=== PATIENT | male | born 1955 | race Caucasian/White ===

== ENCOUNTER 2024-02-22 05:52 | Outpatient (CLI) | payer MEDICARE, SELFPAY ==
[2024-02-22 08:37] LABS: Abs Immature Grans 0.02 10^3/uL (0.0-0.06); Absolute Basophil Count 0.04 10^3/uL (0.0-0.2); Absolute Eosinophil Count 0.43 10^3/uL (0.0-0.7); Absolute Lymphocyte Count 1.39 10^3/uL (1.2-3.4); Absolute Monocyte Count 0.62 10^3/uL (0.1-0.8); Absolute Neutrophil Count 3.54 10^3/uL (1.2-6.7); Basophils % 0.7; Eosinophils % 7.1; HCT 42.9 % (40.0-50.0); HGB 14.1 g/dL (13.5-17.5); Immature Grans % 0.3; MCH 31.7 pg (27.0-33.0); MCHC 32.9 % (32.0-36.0); MCV 96 fL (80-95); MPV 9.7 fL (8.0-11.0); Monocytes % 10.3; Neutrophils % 58.6; Platelet Count 259 10^3/uL (130-400); RBC 4.45 10^6/uL (4.36-5.78); RDW 13.6 % (11.8-14.1); RDW-SD 48.8 fL; WBC 6.04 10^3/uL (4.4-10.8)
[2024-02-22 09:02] LABS: ALT 27 U/L (16-63); AST 32 U/L (15-37); Albumin 3.1 g/dL (3.4-5.0); Alkaline Phosphatase 93 U/L (46-116); BUN 20 mg/dL (7-18); Bilirubin, Total 0.4 mg/dL (0.2-1.0); CREATININE 1.2 mg/dL (0.70-1.30); Calcium 9.1 mg/dL (8.5-10.1); Chloride 105 mmol/L (98-107); Estimated GFR 65.06 (mL/min/1.73m2); FREE T4 1.03 ng/dL (0.76-1.46); Glucose 78 mg/dL (74-106); Potassium 4.4 mmol/L (3.5-5.1); Sodium 144 mmol/L (136-145); TSH 1.19 uIU/Ml (0.36-3.74); Total Protein 7.9 g/dL (6.4-8.2)
== END 2024-02-22 05:53 | disposition home or self-care (01) ==
LOC: LBO 05:52
PROVIDERS: Visit Provider Nurse Practitioner
DX: Z79.899 Other long term (current) drug therapy (principal)
CPT/HCPCS: 36415; 80053; 84439; 84443; 85025

== ENCOUNTER 2024-04-05 01:07 | Outpatient (RCR) | payer MEDICARE, SELFPAY ==
[2024-03-14] MEDS: Normal Saline Flush 10 ML SYR IVP (08:48)
[2024-03-14 09:22] LABS: Abs Immature Grans 0.04 10^3/uL (0.0-0.06); Absolute Basophil Count 0.06 10^3/uL (0.0-0.2); Absolute Eosinophil Count 0.04 10^3/uL (0.0-0.7); Absolute Lymphocyte Count 1.37 10^3/uL (1.2-3.4); Absolute Monocyte Count 0.82 10^3/uL (0.1-0.8); Absolute Neutrophil Count 5.13 10^3/uL (1.2-6.7); Basophils % 0.8 %; Eosinophils % 0.5 %; HCT 39.1 % (40.0-50.0); HGB 13.4 g/dL (13.5-17.5); Immature Grans % 0.5 %; Lymphocytes % 18.4 %; MCH 32.1 pg (27.0-33.0); MCHC 34.3 % (32.0-36.0); MCV 94 fL (80-95); MPV 9.7 fL (8.0-11.0); Neutrophils % 68.8 %; Platelet Count 232 10^3/uL (130-400); RBC 4.17 10^6/uL (4.36-5.78); RDW 13.7 % (11.8-14.1); RDW-SD 46.6 fL; WBC 7.46 10^3/uL (4.4-10.8)
[2024-03-14 09:50] LABS: ALT 24 U/L (16-63); AST 19 U/L (15-37); Albumin 2.9 g/dL (3.4-5.0); Alkaline Phosphatase 88 U/L (46-116); Anion Gap 8.2 mmol/L (3-11); BUN 23 mg/dL (7-18); Bilirubin, Total 0.4 mg/dL (0.2-1.0); CO2 27.8 mmol/L (21.0-32.0); CREATININE 1.1 mg/dL (0.70-1.30); Calcium 8.6 mg/dL (8.5-10.1); Chloride 106 mmol/L (98-107); Estimated GFR 72.22 (mL/min/1.73m2); FREE T4 0.96 ng/dL (0.76-1.46); Glucose 88 mg/dL (74-106); Potassium 4.3 mmol/L (3.5-5.1); Sodium 142 mmol/L (136-145); TSH 0.99 uIU/Ml (0.36-3.74); Total Protein 7.3 g/dL (6.4-8.2)
[2024-04-05] MEDS: Normal Saline Flush 10 ML SYR IVP (08:40)
[2024-04-05 09:24] LABS: Abs Immature Grans 0.02 10^3/uL (0.0-0.06); Absolute Basophil Count 0.05 10^3/uL (0.0-0.2); Absolute Eosinophil Count 0.03 10^3/uL (0.0-0.7); Absolute Lymphocyte Count 1.23 10^3/uL (1.2-3.4); Absolute Monocyte Count 0.76 10^3/uL (0.1-0.8); Absolute Neutrophil Count 5.06 10^3/uL (1.2-6.7); Basophils % 0.7 %; Eosinophils % 0.4 %; HCT 37.2 % (40.0-50.0); HGB 12.5 g/dL (13.5-17.5); Immature Grans % 0.3 %; Lymphocytes % 17.2 %; MCH 31.6 pg (27.0-33.0); MCHC 33.6 % (32.0-36.0); MCV 94 fL (80-95); MPV 9.8 fL (8.0-11.0); Monocytes % 10.6 %; Neutrophils % 70.8 %; Platelet Count 215 10^3/uL (130-400); RBC 3.95 10^6/uL (4.36-5.78); RDW 14.6 % (11.8-14.1); WBC 7.15 10^3/uL (4.4-10.8)
[2024-04-05 09:52] LABS: ALT 26 U/L (16-63); AST 22 U/L (15-37); Albumin 2.9 g/dL (3.4-5.0); Alkaline Phosphatase 88 U/L (46-116); Anion Gap 5.4 mmol/L (3-11); BUN 16 mg/dL (7-18); Bilirubin, Total 0.4 mg/dL (0.2-1.0); CO2 27.6 mmol/L (21.0-32.0); CREATININE 1.1 mg/dL (0.70-1.30); Calcium 8.4 mg/dL (8.5-10.1); Chloride 104 mmol/L (98-107); Estimated GFR 72.22 (mL/min/1.73m2); FREE T4 0.86 ng/dL (0.76-1.46); Glucose 105 mg/dL (74-106); Potassium 4.6 mmol/L (3.5-5.1); Sodium 137 mmol/L (136-145); TSH 2.34 uIU/Ml (0.36-3.74); Total Protein 7.4 g/dL (6.4-8.2)
== END 2024-04-08 23:59 | disposition home or self-care (01) ==
LOC: INF 01:07
PROVIDERS: Visit Provider Nurse Practitioner
DX: Z79.899 Other long term (current) drug therapy (principal); C76.0 Malignant neoplasm of head, face and neck; Z45.2 Encounter for adjustment and management of vascular access device
CPT/HCPCS: 36591; 80053; 84439; 84443; 85025

== ENCOUNTER 2024-04-25 05:45 | Outpatient (RCR) | payer MEDICARE, SELFPAY ==
[2024-04-25] MEDS: Normal Saline Flush 10 ML SYR IVP (07:50)
[2024-04-25 08:00] LABS: Abs Immature Grans 0.05 10^3/uL (0.0-0.06); Absolute Basophil Count 0.04 10^3/uL (0.0-0.2); Absolute Eosinophil Count 0.01 10^3/uL (0.0-0.7); Absolute Lymphocyte Count 1.23 10^3/uL (1.2-3.4); Absolute Monocyte Count 0.66 10^3/uL (0.1-0.8); Absolute Neutrophil Count 4.65 10^3/uL (1.2-6.7); Basophils % 0.6 %; Eosinophils % 0.2 %; HCT 36.8 % (40.0-50.0); HGB 12.1 g/dL (13.5-17.5); Immature Grans % 0.8 %; Lymphocytes % 18.5 %; MCH 31.8 pg (27.0-33.0); MCHC 32.9 % (32.0-36.0); MCV 97 fL (80-95); MPV 9.5 fL (8.0-11.0); Monocytes % 9.9 %; Platelet Count 203 10^3/uL (130-400); RBC 3.81 10^6/uL (4.36-5.78); RDW 15.4 % (11.8-14.1); RDW-SD 54.1 fL; WBC 6.64 10^3/uL (4.4-10.8)
[2024-04-25 08:25] LABS: ALT 25 U/L (16-63); AST 22 U/L (15-37); Albumin 2.9 g/dL (3.4-5.0); Alkaline Phosphatase 88 U/L (46-116); Anion Gap 6.7 mmol/L (3-11); BUN 20 mg/dL (7-18); Bilirubin, Total 0.3 mg/dL (0.2-1.0); CO2 28.3 mmol/L (21.0-32.0); Calcium 8.8 mg/dL (8.5-10.1); Chloride 106 mmol/L (98-107); Estimated GFR 80.97 (mL/min/1.73m2); FREE T4 1.03 ng/dL (0.76-1.46); Glucose 115 mg/dL (74-106); Potassium 4.6 mmol/L (3.5-5.1); Sodium 141 mmol/L (136-145); TSH 1.48 uIU/Ml (0.36-3.74); Total Protein 7.5 g/dL (6.4-8.2)
== END 2024-05-08 23:59 | disposition home or self-care (01) ==
LOC: INF 05:45
PROVIDERS: Visit Provider Nurse Practitioner
DX: C76.0 Malignant neoplasm of head, face and neck (principal); Z79.899 Other long term (current) drug therapy; Z45.2 Encounter for adjustment and management of vascular access device
CPT/HCPCS: 36591; 80053; 84439; 84443; 85025

== ENCOUNTER 2024-05-16 03:07 | Outpatient (RCR) | payer MEDICARE, SELFPAY ==
[2024-05-16] MEDS: Normal Saline Flush 10 ML SYR IVP (09:00)
[2024-05-16 09:11] LABS: Abs Immature Grans 0.03 10^3/uL (0.0-0.06); Absolute Basophil Count 0.04 10^3/uL (0.0-0.2); Absolute Eosinophil Count 0.02 10^3/uL (0.0-0.7); Absolute Lymphocyte Count 1.09 10^3/uL (1.2-3.4); Absolute Monocyte Count 0.69 10^3/uL (0.1-0.8); Absolute Neutrophil Count 4.35 10^3/uL (1.2-6.7); Basophils % 0.6 %; Eosinophils % 0.3 %; HCT 33.7 % (40.0-50.0); HGB 11.1 g/dL (13.5-17.5); Immature Grans % 0.5 %; Lymphocytes % 17.5 %; MCH 32.3 pg (27.0-33.0); MCHC 32.9 % (32.0-36.0); MCV 98 fL (80-95); MPV 9.7 fL (8.0-11.0); Monocytes % 11.1 %; Platelet Count 188 10^3/uL (130-400); RBC 3.44 10^6/uL (4.36-5.78); RDW 16.3 % (11.8-14.1); RDW-SD 58.5 fL; WBC 6.22 10^3/uL (4.4-10.8)
[2024-05-16 09:39] LABS: ALT 18 U/L (16-63); AST 22 U/L (15-37); Albumin 2.7 g/dL (3.4-5.0); Alkaline Phosphatase 85 U/L (46-116); Anion Gap 5.9 mmol/L (3-11); BUN 17 mg/dL (7-18); Bilirubin, Total 0.27 mg/dL (0.2-1.0); CO2 29.1 mmol/L (21.0-32.0); CREATININE 1.1 mg/dL (0.70-1.30); Calcium 8.4 mg/dL (8.5-10.1); Chloride 105 mmol/L (98-107); Estimated GFR 72.22 (mL/min/1.73m2); Glucose 111 mg/dL (74-106); Potassium 4.2 mmol/L (3.5-5.1); Sodium 140 mmol/L (136-145); TSH 1.39 uIU/Ml (0.36-3.74); Total Protein 7.3 g/dL (6.4-8.2)
== END 2024-06-08 23:59 | disposition home or self-care (01) ==
LOC: INF 03:07
PROVIDERS: Visit Provider Nurse Practitioner
DX: C76.0 Malignant neoplasm of head, face and neck (principal); Z79.899 Other long term (current) drug therapy; Z45.2 Encounter for adjustment and management of vascular access device
CPT/HCPCS: 36591; 80053; 84439; 84443; 85025

== ENCOUNTER 2024-07-04 02:43 | Outpatient (RCR) | payer MEDICARE, SELFPAY ==
[2024-06-21 08:55] LABS: Abs Immature Grans 0.04 10^3/uL (0.0-0.06); Absolute Basophil Count 0.04 10^3/uL (0.0-0.2); Absolute Eosinophil Count 0.08 10^3/uL (0.0-0.7); Absolute Lymphocyte Count 2.02 10^3/uL (1.2-3.4); Absolute Monocyte Count 0.72 10^3/uL (0.1-0.8); Absolute Neutrophil Count 4.01 10^3/uL (1.2-6.7); Basophils % 0.6 %; Eosinophils % 1.2 %; HCT 35.3 % (40.0-50.0); HGB 11.4 g/dL (13.5-17.5); Immature Grans % 0.6 %; Lymphocytes % 29.2 %; MCH 32.6 pg (27.0-33.0); MCHC 32.3 % (32.0-36.0); MCV 101 fL (80-95); MPV 9.7 fL (8.0-11.0); Monocytes % 10.4 %; Platelet Count 289 10^3/uL (130-400); RDW 17.2 % (11.8-14.1); WBC 6.91 10^3/uL (4.4-10.8)
[2024-06-21] MEDS: Normal Saline Flush 10 ML SYR IVP (09:07)
[2024-06-21 09:28] LABS: ALT 25 U/L (16-63); AST 17 U/L (15-37); Albumin 2.8 g/dL (3.4-5.0); Alkaline Phosphatase 77 U/L (46-116); Anion Gap 6.5 mmol/L (3-11); BUN 18 mg/dL (7-18); Bilirubin, Total 0.29 mg/dL (0.2-1.0); CO2 31.5 mmol/L (21.0-32.0); Calcium 9.3 mg/dL (8.5-10.1); Chloride 104 mmol/L (98-107); Estimated GFR 80.97 (mL/min/1.73m2); FREE T4 1.25 ng/dL (0.76-1.46); Glucose 83 mg/dL (74-106); Sodium 142 mmol/L (136-145); TSH 1.36 uIU/Ml (0.36-3.74); Total Protein 7.6 g/dL (6.4-8.2)
[2024-07-04] MEDS: Normal Saline Flush 10 ML SYR IVP (09:11)
[2024-07-04 09:25] LABS: Abs Immature Grans 0.03 10^3/uL (0.0-0.06); Absolute Basophil Count 0.03 10^3/uL (0.0-0.2); Absolute Eosinophil Count 0.25 10^3/uL (0.0-0.7); Absolute Lymphocyte Count 1.79 10^3/uL (1.2-3.4); Absolute Monocyte Count 0.78 10^3/uL (0.1-0.8); Absolute Neutrophil Count 6.41 10^3/uL (1.2-6.7); Basophils % 0.3 %; Eosinophils % 2.7 %; HCT 36.9 % (40.0-50.0); Immature Grans % 0.3 %; Lymphocytes % 19.3 %; MCH 33.4 pg (27.0-33.0); MCHC 32.5 % (32.0-36.0); MCV 103 fL (80-95); MPV 9.5 fL (8.0-11.0); Monocytes % 8.4 %; Platelet Count 184 10^3/uL (130-400); RBC 3.59 10^6/uL (4.36-5.78); RDW 17.8 % (11.8-14.1); RDW-SD 67.9 fL; WBC 9.29 10^3/uL (4.4-10.8)
[2024-07-04 09:53] LABS: ALT 30 U/L (16-63); AST 22 U/L (15-37); Albumin 2.8 g/dL (3.4-5.0); Alkaline Phosphatase 100 U/L (46-116); Anion Gap 5.4 mmol/L (3-11); BUN 17 mg/dL (7-18); Bilirubin, Total 0.41 mg/dL (0.2-1.0); CO2 29.6 mmol/L (21.0-32.0); CREATININE 0.9 mg/dL (0.70-1.30); Calcium 8.9 mg/dL (8.5-10.1); Chloride 104 mmol/L (98-107); Estimated GFR 91.88 (mL/min/1.73m2); FREE T4 1.14 ng/dL (0.76-1.46); Glucose 89 mg/dL (74-106); Magnesium 1.8 mg/dL (1.8-2.4); Sodium 139 mmol/L (136-145); TSH 1.02 uIU/Ml (0.36-3.74); Total Protein 7.2 g/dL (6.4-8.2)
== END 2024-07-09 23:59 | disposition home or self-care (01) ==
LOC: INF 02:43
PROVIDERS: Visit Provider Nurse Practitioner
DX: C76.0 Malignant neoplasm of head, face and neck (principal); Z79.899 Other long term (current) drug therapy
CPT/HCPCS: 36591; 80053; 83735; 84439; 84443; 85025

== ENCOUNTER 2024-08-01 02:42 | Outpatient (RCR) | payer MEDICARE, SELFPAY ==
[2024-07-18] MEDS: Normal Saline Flush 10 ML SYR IVP (08:36)
[2024-07-18 08:56] LABS: Abs Immature Grans 0.03 10^3/uL (0.0-0.06); Absolute Basophil Count 0.03 10^3/uL (0.0-0.2); Absolute Eosinophil Count 0.15 10^3/uL (0.0-0.7); Absolute Monocyte Count 0.66 10^3/uL (0.1-0.8); Absolute Neutrophil Count 4.62 10^3/uL (1.2-6.7); Basophils % 0.4 %; Eosinophils % 2.1 %; HGB 12.5 g/dL (13.5-17.5); Immature Grans % 0.4 %; Lymphocytes % 22.6 %; MCH 33.9 pg (27.0-33.0); MCHC 32.9 % (32.0-36.0); MCV 103 fL (80-95); MPV 9.5 fL (8.0-11.0); Monocytes % 9.3 %; Neutrophils % 65.2 %; Platelet Count 247 10^3/uL (130-400); RBC 3.69 10^6/uL (4.36-5.78); RDW-SD 64.8 fL; WBC 7.09 10^3/uL (4.4-10.8)
[2024-07-18 09:20] LABS: ALT 29 U/L (16-63); AST 23 U/L (15-37); Albumin 2.9 g/dL (3.4-5.0); Alkaline Phosphatase 95 U/L (46-116); Anion Gap 4.5 mmol/L (3-11); BUN 22 mg/dL (7-18); CO2 30.5 mmol/L (21.0-32.0); Calcium 9.2 mg/dL (8.5-10.1); Chloride 104 mmol/L (98-107); Creatine Kinase 109 U/L (39-308); Estimated GFR 80.97 (mL/min/1.73m2); Glucose 83 mg/dL (74-106); Potassium 4.3 mmol/L (3.5-5.1); Sodium 139 mmol/L (136-145); Total Protein 7.4 g/dL (6.4-8.2)
[2024-07-20 10:31] LABS: Aldolase 4.8 U/L (<7.7)
[2024-08-01 08:46] LABS: Abs Immature Grans 0.03 10^3/uL (0.0-0.06); Absolute Basophil Count 0.02 10^3/uL (0.0-0.2); Absolute Eosinophil Count 0.02 10^3/uL (0.0-0.7); Absolute Lymphocyte Count 1.13 10^3/uL (1.2-3.4); Absolute Monocyte Count 0.42 10^3/uL (0.1-0.8); Absolute Neutrophil Count 5.56 10^3/uL (1.2-6.7); Basophils % 0.3 %; Eosinophils % 0.3 %; HGB 12.8 g/dL (13.5-17.5); Immature Grans % 0.4 %; Lymphocytes % 15.7 %; MCH 33.6 pg (27.0-33.0); MCHC 32.8 % (32.0-36.0); MCV 102 fL (80-95); MPV 9.3 fL (8.0-11.0); Monocytes % 5.8 %; Neutrophils % 77.5 %; Platelet Count 252 10^3/uL (130-400); RBC 3.81 10^6/uL (4.36-5.78); RDW 15.5 % (11.8-14.1); RDW-SD 58.1 fL; WBC 7.18 10^3/uL (4.4-10.8)
[2024-08-01 09:11] LABS: ALT 27 U/L (16-63); AST 23 U/L (15-37); Albumin 2.7 g/dL (3.4-5.0); Alkaline Phosphatase 87 U/L (46-116); Anion Gap 5.8 mmol/L (3-11); BUN 20 mg/dL (7-18); Bilirubin, Total 0.42 mg/dL (0.2-1.0); CO2 30.2 mmol/L (21.0-32.0); Calcium 9.2 mg/dL (8.5-10.1); Chloride 104 mmol/L (98-107); Estimated GFR 80.97 (mL/min/1.73m2); FREE T4 0.95 ng/dL (0.76-1.46); Glucose 105 mg/dL (74-106); Magnesium 1.8 mg/dL (1.8-2.4); Potassium 4.4 mmol/L (3.5-5.1); Sodium 140 mmol/L (136-145); TSH 0.76 uIU/Ml (0.36-3.74); Total Protein 7.8 g/dL (6.4-8.2)
[2024-08-01] MEDS: Normal Saline Flush 10 ML SYR IVP (10:20)
== END 2024-08-08 23:59 | disposition home or self-care (01) ==
LOC: INF 02:42
PROVIDERS: Visit Provider Nurse Practitioner
DX: C76.0 Malignant neoplasm of head, face and neck (principal); Z79.899 Other long term (current) drug therapy
CPT/HCPCS: 36591; 80053; 82550; 82085; 83735; 84439; 84443; 85025

== ENCOUNTER 2024-08-29 02:01 | Outpatient (RCR) | payer MEDICARE, SELFPAY ==
[2024-08-15] MEDS: Normal Saline Flush 10 ML SYR IVP (10:09)
[2024-08-15 10:41] LABS: Abs Immature Grans 0.03 10^3/uL (0.0-0.06); Absolute Basophil Count 0.03 10^3/uL (0.0-0.2); Absolute Eosinophil Count 0.06 10^3/uL (0.0-0.7); Absolute Lymphocyte Count 1.48 10^3/uL (1.2-3.4); Absolute Monocyte Count 0.83 10^3/uL (0.1-0.8); Absolute Neutrophil Count 6.85 10^3/uL (1.2-6.7); Basophils % 0.3 %; Eosinophils % 0.6 %; HCT 37.6 % (40.0-50.0); HGB 12.6 g/dL (13.5-17.5); Immature Grans % 0.3 %; Lymphocytes % 15.9 %; MCH 33.3 pg (27.0-33.0); MCHC 33.5 % (32.0-36.0); MCV 100 fL (80-95); MPV 9.5 fL (8.0-11.0); Monocytes % 8.9 %; Platelet Count 264 10^3/uL (130-400); RBC 3.78 10^6/uL (4.36-5.78); RDW 14.6 % (11.8-14.1); RDW-SD 53.9 fL; WBC 9.28 10^3/uL (4.4-10.8)
[2024-08-15 11:12] LABS: ALT 28 U/L (16-63); AST 23 U/L (15-37); Albumin 2.6 g/dL (3.4-5.0); Alkaline Phosphatase 111 U/L (46-116); Anion Gap 6.9 mmol/L (3-11); BUN 25 mg/dL (7-18); Bilirubin, Total 0.28 mg/dL (0.2-1.0); CO2 28.1 mmol/L (21.0-32.0); Calcium 8.9 mg/dL (8.5-10.1); Chloride 105 mmol/L (98-107); Estimated GFR 80.47 (mL/min/1.73m2); FREE T4 1.03 ng/dL (0.76-1.46); Glucose 119 mg/dL (74-106); Potassium 4.4 mmol/L (3.5-5.1); Sodium 140 mmol/L (136-145); TSH 0.63 uIU/Ml (0.36-3.74); Total Protein 7.5 g/dL (6.4-8.2)
[2024-08-15 12:36] LABS: Magnesium 1.8 mg/dL (1.8-2.4)
[2024-08-29] MEDS: Normal Saline Flush 10 ML SYR IVP (10:25)
[2024-08-29 10:31] LABS: Abs Immature Grans 0.04 10^3/uL (0.0-0.06); Absolute Basophil Count 0.04 10^3/uL (0.0-0.2); Absolute Lymphocyte Count 1.58 10^3/uL (1.2-3.4); Absolute Monocyte Count 0.86 10^3/uL (0.1-0.8); Absolute Neutrophil Count 7.42 10^3/uL (1.2-6.7); Basophils % 0.4 %; HCT 37.5 % (40.0-50.0); HGB 12.5 g/dL (13.5-17.5); Immature Grans % 0.4 %; Lymphocytes % 15.7 %; MCH 33.3 pg (27.0-33.0); MCHC 33.3 % (32.0-36.0); MCV 100 fL (80-95); MPV 9.5 fL (8.0-11.0); Monocytes % 8.6 %; Neutrophils % 73.9 %; Platelet Count 233 10^3/uL (130-400); RBC 3.75 10^6/uL (4.36-5.78); RDW 14.5 % (11.8-14.1); RDW-SD 53.3 fL; WBC 10.04 10^3/uL (4.4-10.8)
[2024-08-29 10:55] LABS: ALT 36 U/L (16-63); AST 28 U/L (15-37); Albumin 2.6 g/dL (3.4-5.0); Alkaline Phosphatase 103 U/L (46-116); Anion Gap 3.2 mmol/L (3-11); BUN 21 mg/dL (7-18); CO2 31.8 mmol/L (21.0-32.0); CREATININE 1.1 mg/dL (0.70-1.30); Calcium 8.8 mg/dL (8.5-10.1); Chloride 106 mmol/L (98-107); Estimated GFR 71.77 (mL/min/1.73m2); FREE T4 0.99 ng/dL (0.76-1.46); Glucose 115 mg/dL (74-106); Magnesium 1.8 mg/dL (1.8-2.4); Potassium 4.3 mmol/L (3.5-5.1); Sodium 141 mmol/L (136-145); TSH 0.63 uIU/mL (0.36-3.74); Total Protein 7.3 g/dL (6.4-8.2)
== END 2024-09-08 23:59 | disposition home or self-care (01) ==
LOC: INF 02:01
PROVIDERS: Visit Provider Nurse Practitioner
DX: C76.0 Malignant neoplasm of head, face and neck (principal); Z79.899 Other long term (current) drug therapy; Z45.2 Encounter for adjustment and management of vascular access device
CPT/HCPCS: 36591; 80053; 83735; 84439; 84443; 85025

== ENCOUNTER 2024-09-26 01:46 | Outpatient (RCR) | payer MEDICARE, SELFPAY ==
[2024-09-12] MEDS: Normal Saline Flush 10 ML SYR IVP (08:41)
[2024-09-12 09:12] LABS: Abs Immature Grans 0.02 10^3/uL (0.0-0.06); Absolute Basophil Count 0.06 10^3/uL (0.0-0.2); Absolute Eosinophil Count 0.15 10^3/uL (0.0-0.7); Absolute Lymphocyte Count 1.54 10^3/uL (1.2-3.4); Absolute Monocyte Count 0.76 10^3/uL (0.1-0.8); Basophils % 0.9 %; Eosinophils % 2.2 %; HCT 40.6 % (40.0-50.0); HGB 13.4 g/dL (13.5-17.5); Immature Grans % 0.3 %; Lymphocytes % 22.9 %; MCH 32.9 pg (27.0-33.0); MCV 100 fL (80-95); MPV 9.4 fL (8.0-11.0); Monocytes % 11.3 %; Neutrophils % 62.4 %; Platelet Count 229 10^3/uL (130-400); RBC 4.07 10^6/uL (4.36-5.78); RDW 14.6 % (11.8-14.1); WBC 6.73 10^3/uL (4.4-10.8)
[2024-09-12 09:49] LABS: ALT 41 U/L (16-63); AST 30 U/L (15-37); Albumin 2.8 g/dL (3.4-5.0); Alkaline Phosphatase 92 U/L (46-116); BUN 19 mg/dL (7-18); Bilirubin, Total 0.41 mg/dL (0.2-1.0); CREATININE 1.1 mg/dL (0.70-1.30); Calcium 9.1 mg/dL (8.5-10.1); Chloride 106 mmol/L (98-107); Estimated GFR 71.77 (mL/min/1.73m2); Glucose 93 mg/dL (74-106); Magnesium 1.9 mg/dL (1.8-2.4); Potassium 4.4 mmol/L (3.5-5.1); Sodium 144 mmol/L (136-145); TSH 1.12 uIU/mL (0.36-3.74); Total Protein 7.5 g/dL (6.4-8.2)
[2024-09-12 10:05] LABS: FREE T4 0.93 ng/dL (0.76-1.46)
[2024-09-26 10:16] LABS: Abs Immature Grans 0.01 10^3/uL (0.0-0.06); Absolute Basophil Count 0.03 10^3/uL (0.0-0.2); Absolute Lymphocyte Count 1.44 10^3/uL (1.2-3.4); Absolute Monocyte Count 0.63 10^3/uL (0.1-0.8); Absolute Neutrophil Count 4.53 10^3/uL (1.2-6.7); Basophils % 0.4 %; Eosinophils % 1.5 %; HCT 40.2 % (40.0-50.0); HGB 13.4 g/dL (13.5-17.5); Immature Grans % 0.1 %; Lymphocytes % 21.4 %; MCH 32.7 pg (27.0-33.0); MCHC 33.3 % (32.0-36.0); MCV 98 fL (80-95); MPV 9.7 fL (8.0-11.0); Monocytes % 9.3 %; Neutrophils % 67.3 %; Platelet Count 238 10^3/uL (130-400); RDW 14.5 % (11.8-14.1); RDW-SD 51.9 fL; WBC 6.74 10^3/uL (4.4-10.8)
[2024-09-26] MEDS: Normal Saline Flush 10 ML SYR IVP (10:17)
[2024-09-26 10:47] LABS: ALT 40 U/L (16-63); AST 32 U/L (15-37); Albumin 3.1 g/dL (3.4-5.0); Alkaline Phosphatase 106 U/L (46-116); Anion Gap 6.4 mmol/L (3-11); BUN 21 mg/dL (7-18); Bilirubin, Total 0.39 mg/dL (0.2-1.0); CO2 29.6 mmol/L (21.0-32.0); CREATININE 1.1 mg/dL (0.70-1.30); Calcium 9.1 mg/dL (8.5-10.1); Chloride 106 mmol/L (98-107); Estimated GFR 71.77 (mL/min/1.73m2); Glucose 97 mg/dL (74-106); Magnesium 1.7 mg/dL (1.8-2.4); Potassium 4.3 mmol/L (3.5-5.1); Sodium 142 mmol/L (136-145); TSH 0.84 uIU/mL (0.36-3.74); Total Protein 7.6 g/dL (6.4-8.2)
== END 2024-10-08 23:59 | disposition home or self-care (01) ==
LOC: INF 01:46
PROVIDERS: Visit Provider Nurse Practitioner
DX: C76.0 Malignant neoplasm of head, face and neck (principal); Z79.899 Other long term (current) drug therapy; Z45.2 Encounter for adjustment and management of vascular access device
CPT/HCPCS: 36591; 80053; 83735; 84439; 84443; 85025

== ENCOUNTER 2024-10-10 03:18 | Outpatient (RCR) | payer MEDICARE, SELFPAY ==
[2024-10-10] MEDS: Normal Saline Flush 10 ML SYR IVP (09:11)
[2024-10-10 09:25] LABS: Abs Immature Grans 0.03 10^3/uL (0.0-0.06); Absolute Basophil Count 0.02 10^3/uL (0.0-0.2); Absolute Eosinophil Count 0.05 10^3/uL (0.0-0.7); Absolute Lymphocyte Count 1.32 10^3/uL (1.2-3.4); Absolute Monocyte Count 0.46 10^3/uL (0.1-0.8); Absolute Neutrophil Count 4.61 10^3/uL (1.2-6.7); Basophils % 0.3 %; Eosinophils % 0.8 %; HCT 39.5 % (40.0-50.0); HGB 13.1 g/dL (13.5-17.5); Immature Grans % 0.5 %; Lymphocytes % 20.3 %; MCH 32.8 pg (27.0-33.0); MCHC 33.2 % (32.0-36.0); MCV 99 fL (80-95); MPV 9.6 fL (8.0-11.0); Monocytes % 7.1 %; Platelet Count 214 10^3/uL (130-400); RBC 3.99 10^6/uL (4.36-5.78); RDW 14.7 % (11.8-14.1); RDW-SD 53.5 fL; WBC 6.49 10^3/uL (4.4-10.8)
[2024-10-10 09:49] LABS: ALT 39 U/L (16-63); AST 29 U/L (15-37); Albumin 2.9 g/dL (3.4-5.0); Alkaline Phosphatase 105 U/L (46-116); Anion Gap 6.9 mmol/L (3-11); BUN 23 mg/dL (7-18); Bilirubin, Total 0.46 mg/dL (0.2-1.0); CO2 29.1 mmol/L (21.0-32.0); CREATININE 1.1 mg/dL (0.70-1.30); Calcium 8.7 mg/dL (8.5-10.1); Chloride 108 mmol/L (98-107); Estimated GFR 71.77 (mL/min/1.73m2); FREE T4 0.84 ng/dL (0.76-1.46); Glucose 102 mg/dL (74-106); Magnesium 1.8 mg/dL (1.8-2.4); Potassium 4.3 mmol/L (3.5-5.1); Sodium 144 mmol/L (136-145); TSH 0.94 uIU/mL (0.36-3.74); Total Protein 7.4 g/dL (6.4-8.2)
== END 2024-11-08 23:59 | disposition home or self-care (01) ==
LOC: INF 03:18
PROVIDERS: Visit Provider Nurse Practitioner
DX: C76.0 Malignant neoplasm of head, face and neck (principal); Z45.2 Encounter for adjustment and management of vascular access device
CPT/HCPCS: 36591; 80053; 83735; 84439; 84443; 85025

== ENCOUNTER 2024-11-07 02:15 | Outpatient (RCR) | payer MEDICARE, SELFPAY ==
[2024-10-24 08:48] LABS: Abs Immature Grans 0.01 10^3/uL (0.0-0.06); Absolute Basophil Count 0.03 10^3/uL (0.0-0.2); Absolute Lymphocyte Count 1.42 10^3/uL (1.2-3.4); Absolute Monocyte Count 0.36 10^3/uL (0.1-0.8); Absolute Neutrophil Count 3.63 10^3/uL (1.2-6.7); Basophils % 0.5 %; Eosinophils % 1.8 %; HCT 40.7 % (40.0-50.0); HGB 13.6 g/dL (13.5-17.5); Immature Grans % 0.2 %; Lymphocytes % 25.6 %; MCH 32.8 pg (27.0-33.0); MCHC 33.4 % (32.0-36.0); MCV 98 fL (80-95); MPV 9.8 fL (8.0-11.0); Monocytes % 6.5 %; Neutrophils % 65.4 %; Platelet Count 228 10^3/uL (130-400); RBC 4.15 10^6/uL (4.36-5.78); RDW 14.8 % (11.8-14.1); RDW-SD 53.7 fL; WBC 5.55 10^3/uL (4.4-10.8)
[2024-10-24] MEDS: Normal Saline Flush 10 ML SYR IVP (08:49)
[2024-10-24 09:43] LABS: ALT 42 U/L (16-63); AST 33 U/L (15-37); Alkaline Phosphatase 99 U/L (46-116); Anion Gap 7.9 mmol/L (3-11); BUN 18 mg/dL (7-18); Bilirubin, Total 0.39 mg/dL (0.2-1.0); CO2 30.1 mmol/L (21.0-32.0); Calcium 8.9 mg/dL (8.5-10.1); Chloride 106 mmol/L (98-107); Estimated GFR 80.47 (mL/min/1.73m2); Glucose 102 mg/dL (74-106); Magnesium 1.7 mg/dL (1.8-2.4); Potassium 4.4 mmol/L (3.5-5.1); Sodium 144 mmol/L (136-145); Total Protein 7.4 g/dL (6.4-8.2)
[2024-11-07 12:32] LABS: Abs Immature Grans 0.02 10^3/uL (0.0-0.06); Absolute Basophil Count 0.04 10^3/uL (0.0-0.2); Absolute Eosinophil Count 0.14 10^3/uL (0.0-0.7); Absolute Lymphocyte Count 1.94 10^3/uL (1.2-3.4); Absolute Monocyte Count 0.73 10^3/uL (0.1-0.8); Absolute Neutrophil Count 5.71 10^3/uL (1.2-6.7); Basophils % 0.5 %; Eosinophils % 1.6 %; HCT 41.2 % (40.0-50.0); HGB 13.4 g/dL (13.5-17.5); Immature Grans % 0.2 %; Lymphocytes % 22.6 %; MCH 32.5 pg (27.0-33.0); MCHC 32.5 % (32.0-36.0); MCV 100 fL (80-95); MPV 9.8 fL (8.0-11.0); Monocytes % 8.5 %; Neutrophils % 66.6 %; Platelet Count 208 10^3/uL (130-400); RBC 4.12 10^6/uL (4.36-5.78); WBC 8.58 10^3/uL (4.4-10.8)
[2024-11-07] MEDS: Normal Saline Flush 10 ML SYR IVP (12:35)
[2024-11-07 12:49] LABS: ALT 41 U/L (16-63); AST 32 U/L (15-37); Alkaline Phosphatase 99 U/L (46-116); Anion Gap 7.5 mmol/L (3-11); BUN 14 mg/dL (7-18); Bilirubin, Total 0.34 mg/dL (0.2-1.0); CO2 29.5 mmol/L (21.0-32.0); CREATININE 1.1 mg/dL (0.70-1.30); Calcium 8.5 mg/dL (8.5-10.1); Chloride 106 mmol/L (98-107); Estimated GFR 71.77 (mL/min/1.73m2); Glucose 95 mg/dL (74-106); Magnesium 1.6 mg/dL (1.8-2.4); Potassium 4.1 mmol/L (3.5-5.1); Sodium 143 mmol/L (136-145); Total Protein 7.1 g/dL (6.4-8.2)
== END 2024-11-08 23:59 | disposition home or self-care (01) ==
LOC: INF 02:15
PROVIDERS: Visit Provider Nurse Practitioner
DX: C76.0 Malignant neoplasm of head, face and neck (principal); Z45.2 Encounter for adjustment and management of vascular access device
CPT/HCPCS: 36591; 80053; 83735; 85025

== ENCOUNTER 2024-12-05 02:11 | Outpatient (RCR) | payer MEDICARE, SELFPAY ==
[2024-11-21 08:31] LABS: Abs Immature Grans 0.01 10^3/uL (0.0-0.06); Absolute Basophil Count 0.04 10^3/uL (0.0-0.2); Absolute Eosinophil Count 0.06 10^3/uL (0.0-0.7); Absolute Lymphocyte Count 1.54 10^3/uL (1.2-3.4); Absolute Monocyte Count 0.35 10^3/uL (0.1-0.8); Absolute Neutrophil Count 2.99 10^3/uL (1.2-6.7); Basophils % 0.8 %; Eosinophils % 1.2 %; HCT 41.8 % (40.0-50.0); HGB 13.8 g/dL (13.5-17.5); Immature Grans % 0.2 %; Lymphocytes % 30.9 %; MCH 33.1 pg (27.0-33.0); MCV 100 fL (80-95); MPV 9.5 fL (8.0-11.0); Neutrophils % 59.9 %; Platelet Count 203 10^3/uL (130-400); RBC 4.17 10^6/uL (4.36-5.78); RDW 14.8 % (11.8-14.1); RDW-SD 55.2 fL; WBC 4.99 10^3/uL (4.4-10.8)
[2024-11-21] MEDS: Normal Saline Flush 10 ML SYR IVP (08:34)
[2024-11-21 08:49] LABS: ALT 39 U/L (16-63); AST 33 U/L (15-37); Alkaline Phosphatase 100 U/L (46-116); Anion Gap 5.6 mmol/L (3-11); BUN 23 mg/dL (7-18); CO2 31.4 mmol/L (21.0-32.0); CREATININE 1.1 mg/dL (0.70-1.30); Calcium 8.9 mg/dL (8.5-10.1); Chloride 108 mmol/L (98-107); Estimated GFR 71.77 (mL/min/1.73m2); Glucose 105 mg/dL (74-106); Magnesium 1.7 mg/dL (1.8-2.4); Potassium 4.3 mmol/L (3.5-5.1); Sodium 145 mmol/L (136-145); Total Protein 7.2 g/dL (6.4-8.2)
[2024-12-05] MEDS: Normal Saline Flush 10 ML SYR IVP (08:59)
[2024-12-05 09:12] LABS: Abs Immature Grans 0.01 10^3/uL (0.0-0.06); Absolute Basophil Count 0.03 10^3/uL (0.0-0.2); Absolute Eosinophil Count 0.12 10^3/uL (0.0-0.7); Absolute Neutrophil Count 2.76 10^3/uL (1.2-6.7); Basophils % 0.6 %; Eosinophils % 2.3 %; HCT 40.3 % (40.0-50.0); HGB 13.2 g/dL (13.5-17.5); Immature Grans % 0.2 %; Lymphocytes % 35.2 %; MCH 32.9 pg (27.0-33.0); MCHC 32.8 % (32.0-36.0); MCV 101 fL (80-95); Monocytes % 7.8 %; Neutrophils % 53.9 %; Platelet Count 181 10^3/uL (130-400); RBC 4.01 10^6/uL (4.36-5.78); RDW 14.6 % (11.8-14.1); RDW-SD 54.4 fL; WBC 5.12 10^3/uL (4.4-10.8)
[2024-12-05 09:37] LABS: ALT 52 U/L (16-63); AST 42 U/L (15-37); Albumin 2.9 g/dL (3.4-5.0); Alkaline Phosphatase 91 U/L (46-116); Anion Gap 8.6 mmol/L (3-11); BUN 21 mg/dL (7-18); Bilirubin, Total 0.35 mg/dL (0.2-1.0); CO2 29.4 mmol/L (21.0-32.0); CREATININE 1.1 mg/dL (0.70-1.30); Calcium 8.8 mg/dL (8.5-10.1); Chloride 107 mmol/L (98-107); Estimated GFR 71.77 (mL/min/1.73m2); Glucose 118 mg/dL (74-106); Magnesium 1.7 mg/dL (1.8-2.4); Potassium 4.3 mmol/L (3.5-5.1); Sodium 145 mmol/L (136-145); Total Protein 6.7 g/dL (6.4-8.2)
== END 2024-12-09 23:59 | disposition home or self-care (01) ==
LOC: INF 02:11
PROVIDERS: Visit Provider Nurse Practitioner
DX: C76.0 Malignant neoplasm of head, face and neck (principal)
CPT/HCPCS: 36591; 80053; 83735; 85025

== ENCOUNTER 2025-01-02 02:23 | Outpatient (RCR) | payer MEDICARE, SELFPAY ==
[2024-12-19] MEDS: Normal Saline Flush 10 ML SYR IVP (08:13)
[2024-12-19 08:33] LABS: Abs Immature Grans 0.02 10^3/uL (0.0-0.06); Absolute Basophil Count 0.04 10^3/uL (0.0-0.2); Absolute Eosinophil Count 0.06 10^3/uL (0.0-0.7); Absolute Lymphocyte Count 1.05 10^3/uL (1.2-3.4); Absolute Monocyte Count 0.34 10^3/uL (0.1-0.8); Absolute Neutrophil Count 4.81 10^3/uL (1.2-6.7); Basophils % 0.6 %; Eosinophils % 0.9 %; Immature Grans % 0.3 %; Lymphocytes % 16.6 %; MCH 33.4 pg (27.0-33.0); MCHC 33.3 % (32.0-36.0); MCV 100 fL (80-95); MPV 9.8 fL (8.0-11.0); Monocytes % 5.4 %; Neutrophils % 76.2 %; Platelet Count 200 10^3/uL (130-400); RBC 4.19 10^6/uL (4.36-5.78); RDW 13.9 % (11.8-14.1); RDW-SD 51.8 fL; WBC 6.32 10^3/uL (4.4-10.8)
[2024-12-19 08:50] LABS: ALT 48 U/L (16-63); AST 37 U/L (15-37); Alkaline Phosphatase 107 U/L (46-116); Anion Gap 5.1 mmol/L (3-11); BUN 28 mg/dL (7-18); Bilirubin, Total 0.41 mg/dL (0.2-1.0); CO2 30.9 mmol/L (21.0-32.0); Calcium 8.8 mg/dL (8.5-10.1); Chloride 106 mmol/L (98-107); Estimated GFR 80.47 (mL/min/1.73m2); Glucose 124 mg/dL (74-106); Magnesium 1.6 mg/dL (1.8-2.4); Potassium 4.3 mmol/L (3.5-5.1); Sodium 142 mmol/L (136-145); Total Protein 7.1 g/dL (6.4-8.2)
[2025-01-02] MEDS: Normal Saline Flush 10 ML SYR IVP (07:34)
[2025-01-02 07:59] LABS: Abs Immature Grans 0.02 10^3/uL (0.0-0.06); Absolute Basophil Count 0.03 10^3/uL (0.0-0.2); Absolute Eosinophil Count 0.09 10^3/uL (0.0-0.7); Absolute Lymphocyte Count 1.17 10^3/uL (1.2-3.4); Absolute Monocyte Count 0.44 10^3/uL (0.1-0.8); Absolute Neutrophil Count 4.44 10^3/uL (1.2-6.7); Basophils % 0.5 %; Eosinophils % 1.5 %; HCT 42.2 % (40.0-50.0); HGB 14.1 g/dL (13.5-17.5); Immature Grans % 0.3 %; Lymphocytes % 18.9 %; MCH 33.6 pg (27.0-33.0); MCHC 33.4 % (32.0-36.0); MCV 101 fL (80-95); MPV 9.9 fL (8.0-11.0); Monocytes % 7.1 %; Neutrophils % 71.7 %; Platelet Count 190 10^3/uL (130-400); RDW 13.7 % (11.8-14.1); RDW-SD 50.4 fL; WBC 6.19 10^3/uL (4.4-10.8)
[2025-01-02 08:22] LABS: ALT 48 U/L (16-63); AST 41 U/L (15-37); Albumin 3.1 g/dL (3.4-5.0); Alkaline Phosphatase 109 U/L (46-116); Anion Gap 4.4 mmol/L (3-11); BUN 25 mg/dL (7-18); Bilirubin, Total 0.37 mg/dL (0.2-1.0); CO2 30.6 mmol/L (21.0-32.0); CREATININE 1.1 mg/dL (0.70-1.30); Calcium 8.7 mg/dL (8.5-10.1); Chloride 109 mmol/L (98-107); Estimated GFR 71.77 (mL/min/1.73m2); Glucose 107 mg/dL (74-106); Magnesium 1.8 mg/dL (1.8-2.4); Potassium 4.4 mmol/L (3.5-5.1); Sodium 144 mmol/L (136-145); Total Protein 7.1 g/dL (6.4-8.2)
== END 2025-01-06 23:59 | disposition home or self-care (01) ==
LOC: INF 02:23
PROVIDERS: Visit Provider Nurse Practitioner
DX: C76.0 Malignant neoplasm of head, face and neck (principal)
CPT/HCPCS: 36591; 80053; 83735; 85025

== ENCOUNTER 2025-01-30 02:16 | Outpatient (RCR) | payer MEDICARE, SELFPAY ==
[2025-01-16] MEDS: Normal Saline Flush 10 ML SYR IVP (08:55)
[2025-01-16 09:23] LABS: Abs Immature Grans 0.02 10^3/uL (0.0-0.06); Absolute Basophil Count 0.03 10^3/uL (0.0-0.2); Absolute Lymphocyte Count 1.08 10^3/uL (1.2-3.4); Absolute Monocyte Count 0.29 10^3/uL (0.1-0.8); Absolute Neutrophil Count 3.67 10^3/uL (1.2-6.7); Basophils % 0.6 %; Eosinophils % 1.9 %; HCT 42.6 % (40.0-50.0); HGB 14.1 g/dL (13.5-17.5); Immature Grans % 0.4 %; Lymphocytes % 20.8 %; MCH 33.3 pg (27.0-33.0); MCHC 33.1 % (32.0-36.0); MCV 101 fL (80-95); MPV 9.9 fL (8.0-11.0); Monocytes % 5.6 %; Neutrophils % 70.7 %; Platelet Count 194 10^3/uL (130-400); RBC 4.24 10^6/uL (4.36-5.78); RDW 13.5 % (11.8-14.1); RDW-SD 50.3 fL; WBC 5.19 10^3/uL (4.4-10.8)
[2025-01-16 10:03] LABS: ALT 40 U/L (16-63); AST 34 U/L (15-37); Alkaline Phosphatase 112 U/L (46-116); Anion Gap 7.1 mmol/L (3-11); BUN 22 mg/dL (7-18); Bilirubin, Total 0.4 mg/dL (0.2-1.0); CO2 29.9 mmol/L (21.0-32.0); CREATININE 1.2 mg/dL (0.70-1.30); Calcium 8.6 mg/dL (8.5-10.1); Chloride 110 mmol/L (98-107); Estimated GFR 64.65 (mL/min/1.73m2); Glucose 112 mg/dL (74-106); Magnesium 1.8 mg/dL; Potassium 4.5 mmol/L (3.5-5.1); Sodium 147 mmol/L (136-145)
[2025-01-30] MEDS: Normal Saline Flush 10 ML SYR IVP (07:33)
[2025-01-30 07:46] LABS: Abs Immature Grans 0.01 10^3/uL (0.0-0.06); Absolute Basophil Count 0.04 10^3/uL (0.0-0.2); Absolute Lymphocyte Count 1.46 10^3/uL (1.2-3.4); Absolute Monocyte Count 0.54 10^3/uL (0.1-0.8); Absolute Neutrophil Count 4.07 10^3/uL (1.2-6.7); Basophils % 0.6 %; Eosinophils % 1.6 %; HCT 42.4 % (40.0-50.0); HGB 14.3 g/dL (13.5-17.5); Immature Grans % 0.2 %; Lymphocytes % 23.5 %; MCH 33.3 pg (27.0-33.0); MCHC 33.7 % (32.0-36.0); MCV 99 fL (80-95); MPV 10.1 fL (8.0-11.0); Monocytes % 8.7 %; Neutrophils % 65.4 %; Platelet Count 186 10^3/uL (130-400); RDW 13.4 % (11.8-14.1); RDW-SD 49.1 fL; WBC 6.22 10^3/uL (4.4-10.8)
[2025-01-30 08:07] LABS: ALT 43 U/L (16-63); AST 38 U/L (15-37); Albumin 3.1 g/dL (3.4-5.0); Alkaline Phosphatase 109 U/L (46-116); Anion Gap 5.8 mmol/L (3-11); BUN 22 mg/dL (7-18); Bilirubin, Total 0.5 mg/dL (0.2-1.0); CO2 29.2 mmol/L (21.0-32.0); CREATININE 1.1 mg/dL (0.70-1.30); Calcium 8.9 mg/dL (8.5-10.1); Chloride 108 mmol/L (98-107); Estimated GFR 71.77 (mL/min/1.73m2); Glucose 94 mg/dL (74-106); Magnesium 1.9 mg/dL; Potassium 4.8 mmol/L (3.5-5.1); Sodium 143 mmol/L (136-145)
== END 2025-02-06 23:59 | disposition home or self-care (01) ==
LOC: INF 02:16
PROVIDERS: Visit Provider Nurse Practitioner
DX: C76.0 Malignant neoplasm of head, face and neck (principal)
CPT/HCPCS: 36591; 80053; 83735; 85025

== ENCOUNTER 2025-02-27 02:22 | Outpatient (RCR) | payer MEDICARE, SELFPAY ==
[2025-02-13 08:25] LABS: Abs Immature Grans 0.02 10^3/uL (0.0-0.06); Absolute Basophil Count 0.05 10^3/uL (0.0-0.2); Absolute Lymphocyte Count 1.74 10^3/uL (1.2-3.4); Absolute Monocyte Count 0.52 10^3/uL (0.1-0.8); Absolute Neutrophil Count 3.51 10^3/uL (1.2-6.7); Basophils % 0.8 %; Eosinophils % 1.7 %; HCT 41.8 % (40.0-50.0); Immature Grans % 0.3 %; Lymphocytes % 29.3 %; MCH 33.3 pg (27.0-33.0); MCHC 33.5 % (32.0-36.0); MCV 99 fL (80-95); MPV 10.1 fL (8.0-11.0); Monocytes % 8.8 %; Neutrophils % 59.1 %; Platelet Count 178 10^3/uL (130-400); RBC 4.21 10^6/uL (4.36-5.78); RDW 13.4 % (11.8-14.1); WBC 5.94 10^3/uL (4.4-10.8)
[2025-02-13 08:50] LABS: ALT 49 U/L (16-63); AST 43 U/L (15-37); Alkaline Phosphatase 107 U/L (46-116); BUN 23 mg/dL (7-18); Bilirubin, Total 0.5 mg/dL (0.2-1.0); Calcium 8.6 mg/dL (8.5-10.1); Chloride 110 mmol/L (98-107); Estimated GFR 80.47 (mL/min/1.73m2); Glucose 99 mg/dL (74-106); Magnesium 1.7 mg/dL; Potassium 4.7 mmol/L (3.5-5.1); Sodium 144 mmol/L (136-145); Total Protein 6.6 g/dL (6.4-8.2)
[2025-02-13] MEDS: Normal Saline Flush 10 ML SYR IVP (09:07)
[2025-02-27] MEDS: Normal Saline Flush 10 ML SYR IVP (07:39)
[2025-02-27 07:42] LABS: Abs Immature Grans 0.02 10^3/uL (0.0-0.06); Absolute Basophil Count 0.04 10^3/uL (0.0-0.2); Absolute Eosinophil Count 0.11 10^3/uL (0.0-0.7); Absolute Monocyte Count 0.61 10^3/uL (0.1-0.8); Absolute Neutrophil Count 3.77 10^3/uL (1.2-6.7); Basophils % 0.6 %; Eosinophils % 1.7 %; HGB 14.4 g/dL (13.5-17.5); Immature Grans % 0.3 %; Lymphocytes % 28.3 %; MCHC 32.7 % (32.0-36.0); MCV 101 fL (80-95); MPV 9.8 fL (8.0-11.0); Monocytes % 9.6 %; Neutrophils % 59.5 %; Platelet Count 174 10^3/uL (130-400); RBC 4.36 10^6/uL (4.36-5.78); RDW 13.4 % (11.8-14.1); RDW-SD 50.1 fL; WBC 6.35 10^3/uL (4.4-10.8)
[2025-02-27 08:07] LABS: ALT 42 U/L (16-63); AST 34 U/L (15-37); Albumin 3.1 g/dL (3.4-5.0); Alkaline Phosphatase 102 U/L (46-116); BUN 22 mg/dL (7-18); Bilirubin, Total 0.5 mg/dL (0.2-1.0); CREATININE 1.1 mg/dL (0.70-1.30); Calcium 8.9 mg/dL (8.5-10.1); Chloride 109 mmol/L (98-107); Estimated GFR 71.77 (mL/min/1.73m2); Glucose 104 mg/dL (74-106); Magnesium 1.7 mg/dL (1.8-2.4); Potassium 4.5 mmol/L (3.5-5.1); Sodium 143 mmol/L (136-145)
== END 2025-03-08 23:59 | disposition home or self-care (01) ==
LOC: INF 02:22
PROVIDERS: Visit Provider Nurse Practitioner
DX: C76.0 Malignant neoplasm of head, face and neck (principal); Z45.2 Encounter for adjustment and management of vascular access device
CPT/HCPCS: 36415; 36591; 80053; 96523; 83735; 85025

== ENCOUNTER 2025-03-27 03:03 | Outpatient (RCR) | payer MEDICARE, SELFPAY ==
[2025-03-13] MEDS: Normal Saline Flush 10 ML SYR IVP (08:09)
[2025-03-13 08:25] LABS: Abs Immature Grans 0.03 10^3/uL (0.0-0.06); Absolute Basophil Count 0.04 10^3/uL (0.0-0.2); Absolute Eosinophil Count 0.04 10^3/uL (0.0-0.7); Absolute Lymphocyte Count 1.58 10^3/uL (1.2-3.4); Absolute Monocyte Count 0.45 10^3/uL (0.1-0.8); Basophils % 0.6 %; Eosinophils % 0.6 %; HCT 42.2 % (40.0-50.0); HGB 14.1 g/dL (13.5-17.5); Immature Grans % 0.5 %; Lymphocytes % 24.5 %; MCH 33.7 pg (27.0-33.0); MCHC 33.4 % (32.0-36.0); MCV 101 fL (80-95); MPV 9.9 fL (8.0-11.0); Neutrophils % 66.8 %; Platelet Count 188 10^3/uL (130-400); RBC 4.19 10^6/uL (4.36-5.78); RDW 13.6 % (11.8-14.1); RDW-SD 50.3 fL; WBC 6.44 10^3/uL (4.4-10.8)
[2025-03-13 09:15] LABS: ALT 49 U/L (16-63); AST 42 U/L (15-37); Albumin 3.1 g/dL (3.4-5.0); Alkaline Phosphatase 100 U/L (46-116); Anion Gap 6.7 mmol/L (3-11); BUN 25 mg/dL (7-18); Bilirubin, Total 0.5 mg/dL (0.2-1.0); CO2 28.3 mmol/L (21.0-32.0); CREATININE 1.1 mg/dL (0.70-1.30); Calcium 8.8 mg/dL (8.5-10.1); Chloride 108 mmol/L (98-107); Estimated GFR 71.77 (mL/min/1.73m2); Glucose 121 mg/dL (74-106); Magnesium 1.6 mg/dL (1.8-2.4); Potassium 4.1 mmol/L (3.5-5.1); Sodium 143 mmol/L (136-145); Total Protein 6.8 g/dL (6.4-8.2)
[2025-03-27] MEDS: Normal Saline Flush 10 ML SYR IVP (07:14)
[2025-03-27 08:40] LABS: Abs Immature Grans 0.02 10^3/uL (0.0-0.06); Absolute Basophil Count 0.04 10^3/uL (0.0-0.2); Absolute Eosinophil Count 0.12 10^3/uL (0.0-0.7); Absolute Lymphocyte Count 1.78 10^3/uL (1.2-3.4); Absolute Monocyte Count 0.53 10^3/uL (0.1-0.8); Absolute Neutrophil Count 3.93 10^3/uL (1.2-6.7); Basophils % 0.6 %; Eosinophils % 1.9 %; HCT 42.1 % (40.0-50.0); HGB 14.1 g/dL (13.5-17.5); Immature Grans % 0.3 %; Lymphocytes % 27.7 %; MCH 33.3 pg (27.0-33.0); MCHC 33.5 % (32.0-36.0); MCV 99 fL (80-95); MPV 10.3 fL (8.0-11.0); Monocytes % 8.3 %; Neutrophils % 61.2 %; Platelet Count 176 10^3/uL (130-400); RBC 4.24 10^6/uL (4.36-5.78); RDW 13.6 % (11.8-14.1); RDW-SD 49.3 fL; WBC 6.42 10^3/uL (4.4-10.8)
[2025-03-27 09:02] LABS: ALT 49 U/L (16-63); AST 45 U/L (15-37); Albumin 3.1 g/dL (3.4-5.0); Alkaline Phosphatase 98 U/L (46-116); Anion Gap 7.8 mmol/L (3-11); BUN 26 mg/dL (7-18); Bilirubin, Total 0.5 mg/dL (0.2-1.0); CO2 29.2 mmol/L (21.0-32.0); CREATININE 1.2 mg/dL (0.70-1.30); Calcium 8.9 mg/dL (8.5-10.1); Chloride 105 mmol/L (98-107); Estimated GFR 64.65 (mL/min/1.73m2); Glucose 97 mg/dL (74-106); Magnesium 1.7 mg/dL (1.8-2.4); Potassium 4.4 mmol/L (3.5-5.1); Sodium 142 mmol/L (136-145); Total Protein 6.9 g/dL (6.4-8.2)
== END 2025-04-08 23:59 | disposition home or self-care (01) ==
LOC: INF 03:03
PROVIDERS: Visit Provider Nurse Practitioner
DX: C76.0 Malignant neoplasm of head, face and neck (principal); Z79.899 Other long term (current) drug therapy; Z45.2 Encounter for adjustment and management of vascular access device
CPT/HCPCS: 36591; 80053; 83735; 85025

== ENCOUNTER 2025-05-08 01:50 | Outpatient (RCR) | payer MEDICARE, SELFPAY ==
[2025-04-10] MEDS: Normal Saline Flush 10 ML SYR IVP (08:21)
[2025-04-10 08:57] LABS: Abs Immature Grans 0.02 10^3/uL (0.0-0.06); Absolute Basophil Count 0.04 10^3/uL (0.0-0.2); Absolute Eosinophil Count 0.09 10^3/uL (0.0-0.7); Absolute Lymphocyte Count 1.68 10^3/uL (1.2-3.4); Absolute Monocyte Count 0.44 10^3/uL (0.1-0.8); Absolute Neutrophil Count 3.74 10^3/uL (1.2-6.7); Basophils % 0.7 %; Eosinophils % 1.5 %; HCT 43.7 % (40.0-50.0); HGB 14.6 g/dL (13.5-17.5); Immature Grans % 0.3 %; MCH 33.3 pg (27.0-33.0); MCHC 33.4 % (32.0-36.0); MCV 100 fL (80-95); MPV 10.1 fL (8.0-11.0); Monocytes % 7.3 %; Neutrophils % 62.2 %; Platelet Count 174 10^3/uL (130-400); RBC 4.39 10^6/uL (4.36-5.78); RDW 13.8 % (11.8-14.1); RDW-SD 50.9 fL; WBC 6.01 10^3/uL (4.4-10.8)
[2025-04-10 09:24] LABS: ALT 46 U/L (16-63); AST 38 U/L (15-37); Albumin 3.2 g/dL (3.4-5.0); Alkaline Phosphatase 94 U/L (46-116); Anion Gap 8.7 mmol/L (3-11); BUN 21 mg/dL (7-18); Bilirubin, Total 0.6 mg/dL (0.2-1.0); CO2 29.3 mmol/L (21.0-32.0); Calcium 8.7 mg/dL (8.5-10.1); Chloride 107 mmol/L (98-107); Estimated GFR 80.47 (mL/min/1.73m2); FREE T4 0.82 ng/dL (0.76-1.46); Glucose 100 mg/dL (74-106); Magnesium 1.8 mg/dL (1.8-2.4); Potassium 4.3 mmol/L (3.5-5.1); Sodium 145 mmol/L (136-145); TSH 0.93 uIU/mL (0.36-3.74); Total Protein 6.9 g/dL (6.4-8.2)
[2025-04-24] MEDS: Normal Saline Flush 10 ML SYR IVP (07:14)
[2025-04-24 07:40] LABS: Abs Immature Grans 0.01 10^3/uL (0.0-0.06); Absolute Basophil Count 0.05 10^3/uL (0.0-0.2); Absolute Eosinophil Count 0.13 10^3/uL (0.0-0.7); Absolute Lymphocyte Count 1.58 10^3/uL (1.2-3.4); Absolute Neutrophil Count 3.85 10^3/uL (1.2-6.7); Basophils % 0.8 %; Eosinophils % 2.1 %; HCT 41.6 % (40.0-50.0); HGB 14.1 g/dL (13.5-17.5); Immature Grans % 0.2 %; Lymphocytes % 25.4 %; MCH 33.8 pg (27.0-33.0); MCHC 33.9 % (32.0-36.0); MCV 100 fL (80-95); MPV 10.2 fL (8.0-11.0); Monocytes % 9.6 %; Neutrophils % 61.9 %; Platelet Count 171 10^3/uL (130-400); RBC 4.17 10^6/uL (4.36-5.78); RDW 13.5 % (11.8-14.1); RDW-SD 49.8 fL; WBC 6.22 10^3/uL (4.4-10.8)
[2025-04-24 07:56] LABS: ALT 48 U/L (16-63); AST 34 U/L (15-37); Albumin 3.2 g/dL (3.4-5.0); Alkaline Phosphatase 98 U/L (46-116); Anion Gap 5.6 mmol/L (3-11); BUN 25 mg/dL (7-18); Bilirubin, Total 0.5 mg/dL (0.2-1.0); CO2 30.4 mmol/L (21.0-32.0); CREATININE 1.1 mg/dL (0.70-1.30); Calcium 8.7 mg/dL (8.5-10.1); Chloride 106 mmol/L (98-107); Estimated GFR 71.77 (mL/min/1.73m2); Glucose 95 mg/dL (74-106); Magnesium 1.9 mg/dL (1.8-2.4); Potassium 4.7 mmol/L (3.5-5.1); Sodium 142 mmol/L (136-145); Total Protein 6.8 g/dL (6.4-8.2)
[2025-05-08 08:41] LABS: Abs Immature Grans 0.02 10^3/uL (0.0-0.06); Absolute Basophil Count 0.03 10^3/uL (0.0-0.2); Absolute Eosinophil Count 0.11 10^3/uL (0.0-0.7); Absolute Lymphocyte Count 1.63 10^3/uL (1.2-3.4); Absolute Monocyte Count 0.51 10^3/uL (0.1-0.8); Absolute Neutrophil Count 4.15 10^3/uL (1.2-6.7); Basophils % 0.5 %; Eosinophils % 1.7 %; HCT 43.3 % (40.0-50.0); HGB 14.7 g/dL (13.5-17.5); Immature Grans % 0.3 %; Lymphocytes % 25.3 %; MCH 33.9 pg (27.0-33.0); MCHC 33.9 % (32.0-36.0); MCV 100 fL (80-95); Monocytes % 7.9 %; Neutrophils % 64.3 %; Platelet Count 180 10^3/uL (130-400); RBC 4.33 10^6/uL (4.36-5.78); RDW 13.5 % (11.8-14.1); RDW-SD 49.8 fL; WBC 6.45 10^3/uL (4.4-10.8)
[2025-05-08 08:57] LABS: ALT 50 U/L (16-63); AST 37 U/L (15-37); Albumin 3.3 g/dL (3.4-5.0); Alkaline Phosphatase 103 U/L (46-116); Anion Gap 5.4 mmol/L (3-11); BUN 22 mg/dL (7-18); Bilirubin, Total 0.5 mg/dL (0.2-1.0); CO2 30.6 mmol/L (21.0-32.0); Calcium 8.8 mg/dL (8.5-10.1); Chloride 106 mmol/L (98-107); Estimated GFR 80.47 (mL/min/1.73m2); Glucose 105 mg/dL (74-106); Magnesium 1.9 mg/dL (1.8-2.4); Potassium 4.5 mmol/L (3.5-5.1); Sodium 142 mmol/L (136-145); Total Protein 6.8 g/dL (6.4-8.2)
[2025-05-08] MEDS: Normal Saline Flush 10 ML SYR IVP (08:58)
== END 2025-05-08 23:59 | disposition home or self-care (01) ==
LOC: INF 01:50
PROVIDERS: Visit Provider Nurse Practitioner
DX: C76.0 Malignant neoplasm of head, face and neck (principal); Z79.899 Other long term (current) drug therapy; Z45.2 Encounter for adjustment and management of vascular access device
CPT/HCPCS: 36591; 80053; 83735; 84439; 84443; 85025

== ENCOUNTER 2025-06-05 02:42 | Outpatient (RCR) | payer MEDICARE, SELFPAY ==
[2025-05-22 07:02] LABS: Abs Immature Grans 0.01 10^3/uL (0.0-0.06); HCT 40.6 % (40.0-50.0); HGB 13.6 g/dL (13.5-17.5); Immature Grans % 0.2 %; MCH 33.6 pg (27.0-33.0); MCHC 33.5 % (32.0-36.0); MCV 100 fL (80-95); MPV 10.0 fL (8.0-11.0); Platelet Count 178 10^3/uL (130-400); RBC 4.05 10^6/uL (4.36-5.78); RDW 13.4 % (11.8-14.1); RDW-SD 49.5 fL; WBC 5.68 10^3/uL (4.4-10.8)
[2025-05-22 07:24] LABS: ALT 43 U/L (16-63); AST 35 U/L (15-37); Albumin 3.0 g/dL (3.4-5.0); Alkaline Phosphatase 93 U/L (46-116); Anion Gap 5.0 mmol/L (3-11); BUN 22 mg/dL (7-18); Bilirubin, Total 0.4 mg/dL (0.2-1.0); CO2 31.0 mmol/L (21.0-32.0); Calcium 8.8 mg/dL (8.5-10.1); Chloride 107 mmol/L (98-107); Estimated GFR 80.47 (mL/min/1.73m2); Glucose 86 mg/dL (74-106); Magnesium 1.9 mg/dL (1.8-2.4); Potassium 4.7 mmol/L (3.5-5.1); Sodium 143 mmol/L (136-145); Total Protein 6.5 g/dL (6.4-8.2)
[2025-05-22] MEDS: Normal Saline Flush 10 ML SYR IVP (07:33)
[2025-06-05] MEDS: Normal Saline Flush 10 ML SYR IVP (08:45)
[2025-06-05 09:02] LABS: Abs Immature Grans 0.01 10^3/uL (0.0-0.06); HCT 43.4 % (40.0-50.0); HGB 14.4 g/dL (13.5-17.5); Immature Grans % 0.2 %; MCH 32.8 pg (27.0-33.0); MCHC 33.2 % (32.0-36.0); MCV 99 fL (80-95); MPV 10.2 fL (8.0-11.0); Platelet Count 180 10^3/uL (130-400); RBC 4.39 10^6/uL (4.36-5.78); RDW 13.2 % (11.8-14.1); RDW-SD 48.4 fL; WBC 6.48 10^3/uL (4.4-10.8)
[2025-06-05 09:27] LABS: ALT 45 U/L (16-63); AST 34 U/L (15-37); Albumin 3.2 g/dL (3.4-5.0); Alkaline Phosphatase 95 U/L (46-116); Anion Gap 6.3 mmol/L (3-11); BUN 19 mg/dL (7-18); Bilirubin, Total 0.5 mg/dL (0.2-1.0); CO2 30.7 mmol/L (21.0-32.0); Calcium 8.7 mg/dL (8.5-10.1); Chloride 106 mmol/L (98-107); Estimated GFR 80.47 (mL/min/1.73m2); Glucose 98 mg/dL (74-106); Magnesium 1.9 mg/dL (1.8-2.4); Potassium 4.2 mmol/L (3.5-5.1); Sodium 143 mmol/L (136-145); Total Protein 6.8 g/dL (6.4-8.2)
== END 2025-06-08 23:59 | disposition home or self-care (01) ==
LOC: INF 02:42
PROVIDERS: Visit Provider Nurse Practitioner
DX: C76.0 Malignant neoplasm of head, face and neck (principal); Z45.2 Encounter for adjustment and management of vascular access device
CPT/HCPCS: 36591; 80053; 83735; 85025

== ENCOUNTER 2025-07-03 03:30 | Outpatient (RCR) | payer MEDICARE, SELFPAY ==
[2025-06-19] MEDS: Normal Saline Flush 10 ML SYR IVP (07:16)
[2025-06-19 07:22] LABS: Abs Immature Grans 0.02 10^3/uL (0.0-0.06); HCT 43.0 % (40.0-50.0); HGB 14.4 g/dL (13.5-17.5); Immature Grans % 0.3 %; MCH 33.2 pg (27.0-33.0); MCHC 33.5 % (32.0-36.0); MCV 99 fL (80-95); MPV 10.1 fL (8.0-11.0); Platelet Count 165 10^3/uL (130-400); RBC 4.34 10^6/uL (4.36-5.78); RDW 13.5 % (11.8-14.1); RDW-SD 49.1 fL; WBC 5.74 10^3/uL (4.4-10.8)
[2025-06-19 07:42] LABS: ALT 52 U/L (16-63); AST 43 U/L (15-37); Albumin 3.2 g/dL (3.4-5.0); Alkaline Phosphatase 89 U/L (46-116); Anion Gap 3.6 mmol/L (3-11); BUN 23 mg/dL (7-18); Bilirubin, Total 0.6 mg/dL (0.2-1.0); CO2 31.4 mmol/L (21.0-32.0); Calcium 8.7 mg/dL (8.5-10.1); Chloride 107 mmol/L (98-107); Estimated GFR 80.47 (mL/min/1.73m2); Glucose 94 mg/dL (74-106); Magnesium 1.9 mg/dL (1.8-2.4); Potassium 4.5 mmol/L (3.5-5.1); Sodium 142 mmol/L (136-145); Total Protein 6.9 g/dL (6.4-8.2)
[2025-07-03] MEDS: Normal Saline Flush 10 ML SYR IVP (07:46)
[2025-07-03 08:03] LABS: Abs Immature Grans 0.02 10^3/uL (0.0-0.06); HCT 43.2 % (40.0-50.0); HGB 14.5 g/dL (13.5-17.5); Immature Grans % 0.3 %; MCH 33.4 pg (27.0-33.0); MCHC 33.6 % (32.0-36.0); MCV 100 fL (80-95); MPV 10.1 fL (8.0-11.0); Platelet Count 176 10^3/uL (130-400); RBC 4.34 10^6/uL (4.36-5.78); RDW 13.5 % (11.8-14.1); RDW-SD 50.2 fL; WBC 6.48 10^3/uL (4.4-10.8)
[2025-07-03 08:28] LABS: ALT 47 U/L (16-63); AST 40 U/L (15-37); Albumin 3.2 g/dL (3.4-5.0); Alkaline Phosphatase 83 U/L (46-116); Anion Gap 5.6 mmol/L (3-11); BUN 19 mg/dL (7-18); Bilirubin, Total 0.5 mg/dL (0.2-1.0); CO2 30.4 mmol/L (21.0-32.0); Calcium 8.7 mg/dL (8.5-10.1); Chloride 108 mmol/L (98-107); Estimated GFR 80.47 (mL/min/1.73m2); Glucose 105 mg/dL (74-106); Magnesium 1.9 mg/dL (1.8-2.4); Potassium 4.3 mmol/L (3.5-5.1); Sodium 144 mmol/L (136-145); Total Protein 6.6 g/dL (6.4-8.2)
== END 2025-07-09 23:59 | disposition home or self-care (01) ==
LOC: INF 03:30
PROVIDERS: Visit Provider Nurse Practitioner
DX: C76.0 Malignant neoplasm of head, face and neck (principal); Z45.2 Encounter for adjustment and management of vascular access device
CPT/HCPCS: 36591; 80053; 83735; 85025

== ENCOUNTER 2025-07-31 08:30 | Outpatient (RCR) | payer MEDICARE, SELFPAY ==
[2025-07-17 08:15] LABS: Abs Immature Grans 0.02 10^3/uL (0.0-0.06); HCT 42.8 % (40.0-50.0); HGB 14.2 g/dL (13.5-17.5); Immature Grans % 0.3 %; MCH 32.8 pg (27.0-33.0); MCHC 33.2 % (32.0-36.0); MCV 99 fL (80-95); MPV 10.4 fL (8.0-11.0); Platelet Count 171 10^3/uL (130-400); RBC 4.33 10^6/uL (4.36-5.78); RDW 13.6 % (11.8-14.1); RDW-SD 50.4 fL; WBC 6.14 10^3/uL (4.4-10.8)
[2025-07-17] MEDS: Normal Saline Flush 10 ML SYR IVP (08:18)
[2025-07-17 08:52] LABS: ALT 41 U/L (16-63); AST 34 U/L (15-37); Albumin 3.2 g/dL (3.4-5.0); Alkaline Phosphatase 84 U/L (46-116); Anion Gap 5.4 mmol/L (3-11); BUN 21 mg/dL (7-18); Bilirubin, Total 0.5 mg/dL (0.2-1.0); CO2 31.6 mmol/L (21.0-32.0); Calcium 9.1 mg/dL (8.5-10.1); Chloride 107 mmol/L (98-107); Glucose 74 mg/dL (74-106); Magnesium 2.0 mg/dL (1.8-2.4); Potassium 4.5 mmol/L (3.5-5.1); Sodium 144 mmol/L (136-145); Total Protein 6.7 g/dL (6.4-8.2)
[2025-07-31] MEDS: Normal Saline Flush 10 ML SYR IVP (08:37)
[2025-07-31 09:08] LABS: Abs Immature Grans 0.04 10^3/uL (0.0-0.06); HCT 43.9 % (40.0-50.0); HGB 14.8 g/dL (13.5-17.5); Immature Grans % 0.6 %; MCH 33.0 pg (27.0-33.0); MCHC 33.7 % (32.0-36.0); MCV 98 fL (80-95); MPV 10.1 fL (8.0-11.0); Platelet Count 172 10^3/uL (130-400); RBC 4.48 10^6/uL (4.36-5.78); RDW 13.8 % (11.8-14.1); RDW-SD 50.1 fL; WBC 6.38 10^3/uL (4.4-10.8)
[2025-07-31 09:12] LABS: ALT 47 U/L (16-63); AST 41 U/L (15-37); Albumin 3.2 g/dL (3.4-5.0); Alkaline Phosphatase 93 U/L (46-116); Anion Gap 6.0 mmol/L (3-11); BUN 25 mg/dL (7-18); Bilirubin, Total 0.6 mg/dL (0.2-1.0); CO2 28.0 mmol/L (21.0-32.0); Calcium 8.8 mg/dL (8.5-10.1); Chloride 107 mmol/L (98-107); Glucose 122 mg/dL (74-106); Magnesium 1.9 mg/dL (1.8-2.4); Potassium 4.3 mmol/L (3.5-5.1); Sodium 141 mmol/L (136-145); Total Protein 6.8 g/dL (6.4-8.2)
== END 2025-08-08 23:59 | disposition home or self-care (01) ==
LOC: INF 08:30
PROVIDERS: Visit Provider Nurse Practitioner
DX: C76.0 Malignant neoplasm of head, face and neck (principal); Z45.2 Encounter for adjustment and management of vascular access device
CPT/HCPCS: 36415; 36591; 80053; 96523; 83735; 85025

== ENCOUNTER 2025-08-28 03:22 | Outpatient (RCR) | payer MEDICARE, SELFPAY ==
[2025-08-14] MEDS: Normal Saline Flush 10 ML SYR IVP (07:40)
[2025-08-14 08:02] LABS: Abs Immature Grans 0.01 10^3/uL (0.0-0.06); HCT 43.4 % (40.0-50.0); HGB 14.6 g/dL (13.5-17.5); Immature Grans % 0.2 %; MCH 33.6 pg (27.0-33.0); MCHC 33.6 % (32.0-36.0); MCV 100 fL (80-95); MPV 10.2 fL (8.0-11.0); Platelet Count 182 10^3/uL (130-400); RBC 4.35 10^6/uL (4.36-5.78); RDW 13.8 % (11.8-14.1); RDW-SD 50.5 fL; WBC 6.15 10^3/uL (4.4-10.8)
[2025-08-14 08:09] LABS: ALT 45 U/L (16-63); AST 39 U/L (15-37); Albumin 3.2 g/dL (3.4-5.0); Alkaline Phosphatase 99 U/L (46-116); Anion Gap 6.3 mmol/L (3-11); BUN 28 mg/dL (7-18); Bilirubin, Total 0.4 mg/dL (0.2-1.0); CO2 29.7 mmol/L (21.0-32.0); Calcium 8.4 mg/dL (8.5-10.1); Chloride 107 mmol/L (98-107); Estimated GFR 71.32 (mL/min/1.73m2); Glucose 104 mg/dL (74-106); Magnesium 1.9 mg/dL (1.8-2.4); Potassium 4.6 mmol/L (3.5-5.1); Sodium 143 mmol/L (136-145); Total Protein 6.4 g/dL (6.4-8.2)
[2025-08-28 07:20] LABS: Abs Immature Grans 0.03 10^3/uL (0.0-0.06); HCT 42.0 % (40.0-50.0); HGB 14.0 g/dL (13.5-17.5); Immature Grans % 0.5 %; MCH 32.8 pg (27.0-33.0); MCHC 33.3 % (32.0-36.0); MCV 98 fL (80-95); MPV 10.0 fL (8.0-11.0); Platelet Count 174 10^3/uL (130-400); RBC 4.27 10^6/uL (4.36-5.78); RDW 13.7 % (11.8-14.1); RDW-SD 50.2 fL; WBC 6.12 10^3/uL (4.4-10.8)
[2025-08-28] MEDS: Normal Saline Flush 10 ML SYR IVP (07:22)
[2025-08-28 07:33] LABS: ALT 72 U/L (16-63); AST 69 U/L (15-37); Albumin 3.1 g/dL (3.4-5.0); Alkaline Phosphatase 82 U/L (46-116); Anion Gap 7.4 mmol/L (3-11); BUN 28 mg/dL (7-18); Bilirubin, Total 0.7 mg/dL (0.2-1.0); CO2 30.6 mmol/L (21.0-32.0); Calcium 8.4 mg/dL (8.5-10.1); Chloride 104 mmol/L (98-107); Estimated GFR 71.32 (mL/min/1.73m2); Glucose 126 mg/dL (74-106); Magnesium 1.9 mg/dL (1.8-2.4); Potassium 4.1 mmol/L (3.5-5.1); Sodium 142 mmol/L (136-145); Total Protein 6.5 g/dL (6.4-8.2)
== END 2025-09-08 23:59 | disposition home or self-care (01) ==
LOC: INF 03:22
PROVIDERS: Visit Provider Nurse Practitioner
DX: C76.0 Malignant neoplasm of head, face and neck (principal); Z45.2 Encounter for adjustment and management of vascular access device
CPT/HCPCS: 36591; 80053; 83735; 85025

== ENCOUNTER 2025-09-25 02:17 | Outpatient (RCR) | payer MEDICARE, SELFPAY ==
[2025-09-11 07:00] LABS: Abs Immature Grans 0.02 10^3/uL (0.0-0.06); HCT 40.4 % (40.0-50.0); HGB 13.7 g/dL (13.5-17.5); Immature Grans % 0.3 %; MCH 33.7 pg (27.0-33.0); MCHC 33.9 % (32.0-36.0); MCV 100 fL (80-95); MPV 10.2 fL (8.0-11.0); Platelet Count 173 10^3/uL (130-400); RBC 4.06 10^6/uL (4.36-5.78); RDW 13.7 % (11.8-14.1); RDW-SD 50.5 fL; WBC 6.37 10^3/uL (4.4-10.8)
[2025-09-11 07:17] LABS: ALT 48 U/L (16-63); AST 39 U/L (15-37); Albumin 3.0 g/dL (3.4-5.0); Alkaline Phosphatase 78 U/L (46-116); Anion Gap 5.6 mmol/L (3-11); BUN 23 mg/dL (7-18); Bilirubin, Total 0.6 mg/dL (0.2-1.0); CO2 31.4 mmol/L (21.0-32.0); Calcium 8.5 mg/dL (8.5-10.1); Chloride 106 mmol/L (98-107); Estimated GFR 79.97 (mL/min/1.73m2); Glucose 92 mg/dL (74-106); Magnesium 1.7 mg/dL (1.8-2.4); Potassium 4.3 mmol/L (3.5-5.1); Sodium 143 mmol/L (136-145); Total Protein 6.4 g/dL (6.4-8.2)
[2025-09-11] MEDS: Normal Saline Flush 10 ML SYR IVP (09:10)
[2025-09-25] MEDS: Normal Saline Flush 10 ML SYR IVP (08:37)
[2025-09-25 08:43] LABS: Abs Immature Grans 0.02 10^3/uL (0.0-0.06); HCT 42.0 % (40.0-50.0); HGB 13.8 g/dL (13.5-17.5); Immature Grans % 0.4 %; MCH 32.6 pg (27.0-33.0); MCHC 32.9 % (32.0-36.0); MCV 99 fL (80-95); MPV 10.3 fL (8.0-11.0); Platelet Count 179 10^3/uL (130-400); RBC 4.23 10^6/uL (4.36-5.78); RDW 13.5 % (11.8-14.1); RDW-SD 49.7 fL; WBC 5.41 10^3/uL (4.4-10.8)
[2025-09-25 08:52] LABS: Magnesium 1.7 mg/dL (1.6-2.6)
[2025-09-25 08:56] LABS: ALT 37 U/L (10-49); AST 40 U/L (<34); Albumin 3.5 g/dL (3.4-5.0); Alkaline Phosphatase 78 U/L (46-116); Anion Gap 8.1 mmol/L (3-11); BUN 22 mg/dL (9-23); Bilirubin, Total 0.70 mg/dL (0.2-1.2); CO2 29.9 mmol/L (20.0-31.0); Calcium 8.7 mg/dL (8.3-10.6); Chloride 107 mmol/L (98-107); Glucose 102 mg/dL (74-106); Potassium 4.3 mmol/L (3.5-5.1); Sodium 145 mmol/L (136-145); Total Protein 6.2 g/dL (5.7-8.2)
== END 2025-10-08 23:59 | disposition home or self-care (01) ==
LOC: INF 02:17
PROVIDERS: Visit Provider Nurse Practitioner
DX: C76.0 Malignant neoplasm of head, face and neck (principal); Z45.2 Encounter for adjustment and management of vascular access device
CPT/HCPCS: 36591; 80053; 83735; 85025

== ENCOUNTER 2025-11-06 00:27 | Outpatient (RCR) | payer MEDICARE, SELFPAY ==
[2025-10-09] MEDS: Normal Saline Flush 10 ML SYR IVP (07:45)
[2025-10-09 07:49] LABS: Abs Immature Grans 0.01 10^3/uL (0.0-0.06); HCT 42.2 % (40.0-50.0); HGB 14.0 g/dL (13.5-17.5); Immature Grans % 0.1 %; MCH 32.6 pg (27.0-33.0); MCHC 33.2 % (32.0-36.0); MCV 98 fL (80-95); MPV 10.0 fL (8.0-11.0); Platelet Count 169 10^3/uL (130-400); RBC 4.29 10^6/uL (4.36-5.78); RDW 13.2 % (11.8-14.1); RDW-SD 47.9 fL; WBC 6.78 10^3/uL (4.4-10.8)
[2025-10-09 08:10] LABS: Magnesium 1.7 mg/dL (1.6-2.6)
[2025-10-09 08:11] LABS: ALT 39 U/L (10-49); AST 43 U/L (<34); Albumin 3.8 g/dL (3.2-5.0); Alkaline Phosphatase 86 U/L (46-116); Anion Gap 7.6 mmol/L (3-11); BUN 21 mg/dL (9-23); Bilirubin, Total 0.80 mg/dL (0.2-1.2); CO2 29.4 mmol/L (20.0-31.0); Calcium 9.1 mg/dL (8.3-10.6); Chloride 107 mmol/L (98-107); Glucose 95 mg/dL (74-106); Potassium 4.4 mmol/L (3.5-5.1); Sodium 144 mmol/L (136-145); Total Protein 6.8 g/dL (5.7-8.2)
[2025-10-24 08:44] LABS: Abs Immature Grans 0.02 10^3/uL (0.0-0.06); HCT 44.2 % (40.0-50.0); HGB 14.6 g/dL (13.5-17.5); Immature Grans % 0.3 %; MCH 32.8 pg (27.0-33.0); MCHC 33.0 % (32.0-36.0); MCV 99 fL (80-95); MPV 10.5 fL (8.0-11.0); Platelet Count 193 10^3/uL (130-400); RBC 4.45 10^6/uL (4.36-5.78); RDW 13.2 % (11.8-14.1); RDW-SD 48.8 fL; WBC 5.85 10^3/uL (4.4-10.8)
[2025-10-24 09:10] LABS: Magnesium 1.5 mg/dL (1.6-2.6)
[2025-10-24 09:12] LABS: ALT 40 U/L (10-49); AST 42 U/L (<34); Albumin 3.7 g/dL (3.2-5.0); Alkaline Phosphatase 78 U/L (46-116); Anion Gap 9.2 mmol/L (3-11); BUN 22 mg/dL (9-23); Bilirubin, Total 0.7 mg/dL (0.2-1.2); CO2 27.8 mmol/L (20.0-31.0); Calcium 8.8 mg/dL (8.3-10.6); Chloride 108 mmol/L (98-107); Glucose 86 mg/dL (74-106); Potassium 4.3 mmol/L (3.5-5.1); Sodium 145 mmol/L (136-145); Total Protein 6.6 g/dL (5.7-8.2)
[2025-10-24] MEDS: Normal Saline Flush 10 ML SYR IVP (09:43)
== END 2025-11-08 23:59 | disposition home or self-care (01) ==
LOC: INF 00:27
PROVIDERS: Internal Medicine Hematology; Visit Provider Nurse Practitioner
DX: C76.0 Malignant neoplasm of head, face and neck (principal); Z45.2 Encounter for adjustment and management of vascular access device
CPT/HCPCS: 36591; 80053; 83735; 85025